=== PATIENT | male | born 1965 | race Caucasian/White ===

== ENCOUNTER 2017-02-24 17:30 | Emergency (ER) | payer BC ==
[2017-02-24] MEDS ORDERED: Ketorolac INJ* 60 MG/2 ML VIAL IM ONE (17:42)
--- NOTE | 2017-02-24 17:42 | UC ---
Back Pain HPI - HPI Summary HPI Summary: was working on his computer this afternoon, and go a spasm in his back - History of Current Complaint Chief Complaint: UCBackPain Stated Complaint: BACK PAIN Time Seen by Provider: 02/24/17 18:30 Hx Obtained From: Patient Onset/Duration: Sudden Onset, Lasting Hours, Still Present Timing: Constant Severity Initially: Moderate Severity Currently: Moderate Pain Intensity: 8 Pain Scale Used: 0-10 Numeric Back Pain: Is Discrete @ - left side of lumbar spine without radiation Character: Aching, Spasmodic, Stiffness Aggravating: Movement, Lifting Alleviating: Nothing Associated Signs And Symptoms: Positive: Negative Related History: Previous Back Injury - Allergies/Home Medications Allergies/Adverse Reactions: Allergies Allergy/AdvReac Type Severity Reaction Status Date / Time Metformin and Related Allergy Intermediate Itching Verified 02/24/17 18:00 PMH/Surg Hx/FS Hx/Imm Hx Previously Healthy: No Endocrine History: Hypothyroidism - Surgical History Surgical History: Yes Surgery Procedure, Year, and Place: JOSE JU[place] 2011 [facility] [place] surgery arthroscopic 19yrs ago [facility] 02/17. lt knee surgery 21 yrs ago [facility] - Family History Known Family History: Positive: Cardiac Disease, Hypertension, Diabetes - Social History Occupation: Employed Full-time Lives: With Family Alcohol Use: None Substance Use Type: None Smoking Status (MU): Never Smoked Tobacco Review of Systems Constitutional: Negative Skin: Negative Eyes: Negative ENT: Negative Respiratory: Negative Cardiovascular: Negative Gastrointestinal: Negative Genitourinary: Negative Motor: Negative Neurovascular: Negative Musculoskeletal: Myalgia - lefy side of lumbar spine Neurological: Negative Psychological: Negative All Other Systems Reviewed And Are Negative: Yes Physical Exam Triage Information Reviewed: Yes Appearance: Well-Appearing, Pain Distress, Obese Vital Signs Reviewed: Yes Eye Exam: Normal Eyes: Positive: Conjunctiva Clear ENT Exam: Normal ENT: Positive: Normal ENT inspection, Hearing grossly normal. Negative: Nasal congestion, Nasal drainage, Trismus, Muffled/hoarse voice Dental Exam: Normal Neck exam: Normal Neck: Positive: Supple, Nontender Respiratory Exam: Normal Respiratory: Positive: Chest non-tender, Lungs clear, Normal breath sounds, No respiratory distress, No accessory muscle use Cardiovascular Exam: Normal Cardiovascular: Positive: RRR, No Murmur, Pulses Normal, Brisk Capillary Refill Abdominal Exam: Normal Abdomen Description: Positive: Nontender, No Organomegaly, Soft. Negative: CVA Tenderness (R), CVA Tenderness (L) Musculoskeletal Exam: Normal Musculoskeletal: Positive: Strength Intact, ROM Intact, No Edema Neurological Exam: Normal Neurological: Positive: Alert, Muscle Tone Normal Psychological Exam: Normal Skin Exam: Normal Back Pain Course/Dx - Course Course Of Treatment: pain med, NSAIDS, Muscle relaxor, back exercise, follow BP with PCP - Differential Dx/Diagnosis Differential Diagnosis/HQI/PQRI: Arthritis, Herniated Disc, Renal Colic, Strain , Sprain Provider Diagnoses: Acute lumbar muscle spasm, hightblood pressure without diagnosis of hypertension Discharge - Discharge Plan Condition: Stable Disposition: HOME Prescriptions: Cyclobenzaprine TAB* [Flexeril 10 MG TAB*] 10 mg PO TID PRN #15 tab PRN Reason: muscle spasm Naproxen [Naproxen 500 mg] 500 mg PO Q12H PRN #20 tab PRN Reason: Pain Patient Education Materials: Low Back Strain (ED), Hypertension (ED), Muscle Spasm (ED), Core Strengthening Exercises (GEN), Lower Back Exercises (ED) Forms: *Work Release Referrals: Palomo De La Vega MD [Primary Care Provider] - 1 Day (if needed)
[2017-02-24] MEDS ORDERED: Cyclobenzaprine TAB* 10 MG PO ONE ×2 (17:43→18:24)
[2017-02-24 18:07] VITALS: BP 144/99
[2017-02-24] MEDS ORDERED: HYDROcodone/ACETAMIN 5-325 MG* 1 TAB PO ONE (18:25)
== END 2017-02-24 19:00 | disposition home or self-care (01) ==
LOC: UCEAST 17:30
DX: M62.830 Muscle spasm of back (principal); R03.0 Elevated blood-pressure reading, without diagnosis of hypertension; E03.9 Hypothyroidism, unspecified
CPT/HCPCS: 96372; 99213; A9270-GY; G0463; J1885

== ENCOUNTER → 2017-03-05 09:27 | Emergency (ER) | payer BC ==
[~2017-03-05 09:27] MED LIST: Adenosine SYRINGE* 6 MG/2 ML IV PUSH ONE; Adenosine* 3 MG/ML VIAL IV PUSH ONE; Adenosine* 3 MG/ML VIAL ONE; NS 0.9% 1000 ML* 2,000 ML IV ONE; NS 0.9% 1000 ML*IV.FLUID BOLUS ONE
--- NOTE | 2017-03-05 10:23 | RAD ---
Indication: Chest pain. Tachycardia. Diaphoresis. Comparison: No relevant prior exams available on the [facility] PACS for comparison. Technique: Upright AP 1000 hours Report: Large body habitus limits image quality. No pulmonary infiltrate, focal pulmonary lesion, pleural effusion, pneumothorax. Top normal heart size accounting for portable AP technique. Unremarkable central pulmonary vasculature and mediastinal contours. IMPRESSION: No evidence for acute intrathoracic disease.
[2017-03-05 11:03] LABS: Potassium 4.4 mmol/L (3.5-5.0)
[2017-03-05 11:04] LABS: Albumin 4.7 g/dL (3.2-5.2); BUN/Creatinine Ratio 16.4 (8-20); Calcium 9.5 mg/dL (8.6-10.3); EGFR African American 72.6 (>60); EGFR Non-African American 56.4 (>60); Globulin 3.2 g/dL (2-4); Total Bilirubin 1.2 mg/dL (0.2-1.0); Total Protein 7.9 g/dL (6.4-8.9)
[2017-03-05 11:24] LABS: Troponin I 0.02 ng/mL (<0.04)
[2017-03-05 12:20] LABS: Hematocrit 44 % (42-52); Hemoglobin 14.5 g/dl (14.0-18.0); Mean Corpuscular HGB Conc 33 g/dl (31-36); Mean Corpuscular Hemoglobin 30 pg (27-31); Mean Corpuscular Volume 90 fL (80-94); Mean Platelet Volume 9 um3 (7.4-10.4); Red Blood Count 4.87 10^6/ul (4.0-5.4); Red Cell Distribution Width 14 % (10.5-15); White Blood Count 8.1 10^3/ul (3.5-10.8)
[2017-03-05 14:30] VITALS: BP 166/122
--- NOTE | 2017-03-05 14:46 | ED ---
Carmen Mcmillan SooYoung, scribed for Pedro Vasquez MD on 03/05/17 at 0939 . Palpitations / Dysrhythmia - HPI Summary HPI Summary: A 51 y/o M presents to ED with racing palpitations onset at approx 0830. Associated sx: diaphoretic. Pt denies pain at bedside. PCP is Dr. De La Vega. - History of Current Complaint Chief Complaint: EDDysrhythmPalp Hx Obtained From: Patient Onset/Duration: Lasting Hours - onset approx 0830, Still Present Timing: Constant Severity Initially: Moderate Severity Currently: Moderate - 4 out of 10 Character: Fast Associated Signs & Symptoms: Diaphoresis - Allergy/Home Medications Allergies/Adverse Reactions: Allergies Allergy/AdvReac Type Severity Reaction Status Date / Time Metformin and Related Allergy Intermediate Itching Verified 03/05/17 09:31 PMH/Surg Hx/FS Hx/Imm Hx Previously Healthy: No Endocrine/Hematology History: Reports: Hx Thyroid Disease Denies: Hx Diabetes Cardiovascular History: Denies: Hx Hypertension, Hx Pacemaker/ICD Respiratory History: Reports: Hx Sleep Apnea - HAS NEVER BEEN FORMALLY DIAGNOSED Denies: Hx Asthma, Hx Chronic Obstructive Pulmonary Disease (COPD) GI History: Reports: Other GI Disorders - VOMITING AFTER COUGH/SNEEZING DUE TO ESOPHAGEAL SPASMS Denies: Hx Ulcer History: Denies: Hx Renal Disease Sensory History: Reports: Hx Contacts or Glasses - GLASSES Denies: Hx Hearing Aid Opthamlomology History: Reports: Hx Contacts or Glasses - GLASSES Psychiatric History: Denies: Hx Panic Disorder - Cancer History Cancer Type, Location and Year: melanoma 9 yrs ago - Surgical History Surgery Procedure, Year, and Place: 2011 [facility] [place]. rt knee surgery arthroscopic 19yrs ago [facility] [place] 02/17. lt knee surgery 21 yrs ago [facility] [place] Hx Anesthesia Reactions: No - CONCERNED HE MAY VOMIT DURING SURGERY Infectious Disease History: No Infectious Disease History: Denies: Hx Hepatitis, Hx Human Immunodeficiency Virus (HIV), Traveled Outside the [place] in Last 30 Days - Family History Known Family History: Positive: Cardiac Disease, Hypertension, Diabetes - Social History Occupation: Unemployed Lives: With Family Alcohol Use: None Hx Substance Use: No Substance Use Type: Reports: None Hx Tobacco Use: No Smoking Status (MU): Never Smoked Tobacco Review of Systems Positive: Skin Diaphoresis Positive: Palpitations All Other Systems Reviewed And Are Negative: Yes Physical Exam Triage Information Reviewed: Yes Vital Signs On Initial Exam: Initial Vitals Temp Pulse Resp BP Pulse Ox 96 F 211 16 146/102 99 03/05/17 09:31 03/05/17 09:31 03/05/17 09:31 03/05/17 09:31 03/05/17 09:31 Vital Signs Reviewed: Yes Appearance: Positive: Well-Appearing, No Pain Distress, Obese - morbidly Skin: Positive: Warm, Skin Color Reflects Adequate Perfusion, Diaphoretic Head/Face: Positive: Normal Head/Face Inspection Eyes: Positive: Normal ENT: Positive: Normal ENT inspection Neck: Positive: Supple, Nontender Respiratory/Lung Sounds: Positive: Clear to Auscultation, Breath Sounds Present Cardiovascular: Positive: Tachycardia Abdomen Description: Positive: Nontender, Soft Bowel Sounds: Positive: Present Musculoskeletal: Positive: Normal Neurological: Positive: Normal Psychiatric: Positive: Normal, Affect/Mood Appropriate Diagnostics - Vital Signs Vital Signs Temp Pulse Resp BP Pulse Ox 03/05/17 09:31 96 F 211 16 146/102 99 - Laboratory Lab Results: Lab Results 03/05/17 03/05/17 03/05/17 Range/Units 09:40 09:40 12:10 WBC 8.1 (3.5-10.8) 10^3/ul RBC 4.87 (4.0-5.4) 10^6/ul Hgb 14.5 (14.0-18.0) g/dl Hct 44 (42-52) % MCV 90 (80-94) fL MCH 30 (27-31) pg MCHC 33 (31-36) g/dl RDW 14 (10.5-15) % Plt Count 186 (150-450) 10^3/ul MPV 9 (7.4-10.4) um3 Neut % (Auto) 65.6 (38-83) % Lymph % (Auto) 21.1 L (25-47) % [place] % (Auto) 11.5 H (1-9) % Eos % (Auto) 1.2 (0-6) % Baso % (Auto) 0.6 (0-2) % Absolute Neuts (auto) 5.3 (1.5-7.7) 10^3/ul Absolute Lymphs (auto) 1.7 (1.0-4.8) 10^3/ul Absolute Monos (auto) 0.9 H (0-0.8) 10^3/ul Absolute Eos (auto) 0.1 (0-0.6) 10^3/ul Absolute Basos (auto) 0 (0-0.2) 10^3/ul Absolute Nucleated RBC 0 10^3/ul Nucleated RBC % 0 Sodium 136 (133-145) mmol/L Potassium 4.4 (3.5-5.0) mmol/L Chloride 101 (101-111) mmol/L Carbon Dioxide 21 L (22-32) mmol/L Anion Gap 14 H (2-11) mmol/L BUN 22 (6-24) mg/dL Creatinine 1.34 H (0.67-1.17) mg/dL Est GFR ( Amer) 72.6 (>60) Est GFR (Non-Af Amer) 56.4 (>60) BUN/Creatinine Ratio 16.4 (8-20) Glucose 147 H (70-100) mg/dL Calcium 9.5 (8.6-10.3) mg/dL Total Bilirubin 1.20 H (0.2-1.0) mg/dL AST 54 H (13-39) U/L ALT 62 H (7-52) U/L Alkaline Phosphatase 67 (34-104) U/L CK-MB (CK-2) 9.5 H (0.6-6.3) ng/mL Troponin I 0.02 (<0.04) ng/mL B-Natriuretic Peptide 29 ( - 100) pg/mL Total Protein 7.9 (6.4-8.9) g/dL Albumin 4.7 (3.2-5.2) g/dL Globulin 3.2 (2-4) g/dL Albumin/Globulin Ratio 1.5 (1-3) Result Diagrams: 03/05/17 12:10 03/05/17 09:40 Lab Statement: Any lab studies that have been ordered have been reviewed, and results considered in the medical decision making process. - Radiology CXR Xray Interpretation: No Acute Changes - IMPRESSION: No evidence for acute intrathoracic dz. ED physician has reviewed this radiology report and agrees. Radiology Interpretation Completed By: Radiologist - EKG 0954 EKG Interpretation: Narrow complex tachycardia 1246 Cardiac Rate: Tachycardia - borderline tachy, 102bpm EKG Interpretation: boderline tachy with increased QTC 0953 Cardiac Rate: Tachycardia - 109 bpm EKG Rhythm: Sinus Tachycardia - with prolonged QTC Re-Evaluation - Re-Evaluation 1 Re-Evaluation Time: 14:09 Change: Improved Comment: Discussing results and consult with pt. Discussed plan to dispo. Pt voiced understanding. Course/Dx - Course Course Of Treatment: Mr. Long presented feeling his heart race, diaphoresis and weakness. He was found to be in SVT and converted with adenocard. His W/U was otherwise negative except for a prolonged QTc on ecg. He will F/U with Dr. Draper. - Diagnoses Provider Diagnoses: SVT (supraventricular tachycardia) - Physician Notifications Discussed Care Of Patient With: Leo Draper - cardiology Time Discussed With Above Provider: 12:32 Instructed by Provider To: Other - Discussed plan to dispo and f/u in office, Dr. Draper agreed. Discharge - Discharge Plan Condition: Stable Disposition: HOME Patient Education Materials: Supraventricular Tachycardia (ED) Referrals: Palomo De La Vega MD [Primary Care Provider] - Leo Draper MD [Medical Doctor] - 1 Week Additional Instructions: Follow up with Dr. Draper, cardiology, this week. Please return to the ED if you experience new or worsening symptoms. Consult Consult: 1332: Consult with Dr. Draper, cardio Discussing 3rd EKG. Agrees that D/C is OK. The documentation as recorded by the Carmen allred SooYoung accurately reflects the service I personally performed and the decisions made by me, Pedro Vasquez MD.
== END | disposition home or self-care (01) ==
LOC: ED 09:27
DX: I47.1 Supraventricular tachycardia (principal); R07.9 Chest pain, unspecified; R00.2 Palpitations; R61 Generalized hyperhidrosis
CPT/HCPCS: 36415; 71010; 80053; 82553; 83880; 84484; 85025; 93005; 99282; J0153

== ENCOUNTER 2018-06-11 12:30 | Emergency (ER) | payer BC, OTHER ==
[2018-06-11 12:45] VITALS: BP 153/99
--- NOTE | 2018-06-11 14:59 | UC ---
Lower Extremity/Ankle HPI - HPI Summary HPI Summary: SLIPPED ON AN ICY CURB GETTING OUT OF THE CAR TO GO IN TO WORK. PULLED LEFT GROIN. HAS PAIN. NO NUMBNESS OR TINGLING. - History of Current Complaint Chief Complaint: UCGeneralIllness Stated Complaint: L GROIN, BACK PAIN Time Seen by Provider: 06/11/18 14:37 Hx Obtained From: Patient Onset/Duration: Sudden Onset, Lasting Hours, Still Present Severity Initially: Moderate Severity Currently: Moderate Pain Intensity: 8 Pain Scale Used: 0-10 Numeric Aggravating Factor(s): Standing, Ambulation Alleviating Factor(s): Rest Able to Bear Weight: Yes - Allergies/Home Medications Allergies/Adverse Reactions: Allergies Allergy/AdvReac Type Severity Reaction Status Date / Time metformin Allergy tongue Verified 06/11/18 12:45 swelling, itching PMH/Surg Hx/FS Hx/Imm Hx Endocrine History: Hypothyroidism Other Cancer History: MELANOMA - Surgical History Surgical History: Yes Surgery Procedure, Year, and Place: [place] [facility] [place] arth[place] 19yrs ago [facility] 02/17. lt knee surgery 21 yrs ago [facility] - Family History Known Family History: Positive: Cardiac Disease, Hypertension, Diabetes - Social History Alcohol Use: None Substance Use Type: None Smoking Status (MU): Never Smoked Tobacco Review of Systems All Other Systems Reviewed And Are Negative: Yes Constitutional: Positive: Negative Skin: Positive: Negative Respiratory: Positive: Negative Cardiovascular: Positive: Negative Gastrointestinal: Positive: Negative Musculoskeletal: Positive: Decreased ROM, Other: - LEFT GROIN PAIN Physical Exam Triage Information Reviewed: Yes Appearance: Well-Appearing, Well-Nourished, Pain Distress - MODERATE Vital Signs: Initial Vital Signs Temp 98 F 06/11/18 12:43 Pulse 100 06/11/18 12:43 Resp 20 06/11/18 12:43 BP 153/99 06/11/18 12:43 Pulse Ox 100 06/11/18 12:43 Vital Signs Reviewed: Yes Eyes: Positive: Conjunctiva Clear ENT: Positive: Hearing grossly normal Neck: Positive: Supple Respiratory: Positive: No respiratory distress, No accessory muscle use Cardiovascular: Positive: Pulses Normal Abdomen Description: Positive: Soft Musculoskeletal: Positive: No Edema, Other: - LEFT GROIN TENDERNESS. DECREASED RANGE OF MOTION LEFT HIP DUE TO GROIN PAIN Neurological: Positive: Alert Psychological: Positive: Age Appropriate Behavior Skin: Negative: Rashes Lower Extremity Course/Dx - Differential Dx/Diagnosis Provider Diagnosis: Strain of left inguinal muscle Discharge - Sign-Out/Discharge Documenting (check all that apply): Patient Departure All imaging exams completed and their final reports reviewed: No Studies - Discharge Plan Condition: Stable Disposition: HOME Prescriptions: Cyclobenzaprine TAB* [Flexeril TAB*] 10 mg PO BID PRN #30 tab PRN Reason: Pain Patient Education Materials: Groin Strain (ED) Forms: *Work Release Referrals: Adolfo Wilde MD [Medical Doctor] - If Needed Palomo De La Vega MD [Primary Care Provider] - If Needed Additional Instructions: YOUR SYMPTOMS SHOULD IMPROVE SIGNIFICANTLY OVER THE NEXT 1-2 WEEKS. IF YOU DO NOT IMPROVE EXPECTED FOLLOW-UP WITH YOUR PCP OR OCCUPATIONAL MEDICINE (DR. WILDE). REST. OTC IBUPROFEN OR ALEVE NEEDED FOR DISCOMFORT. TAKE MUSCLE RELAXER BEFORE BED. BE SURE TO GO THROUGH SLOW RANGE OF MOTION AND STRETCHING EXERCISES DAILY YOU ARE ABLE TO PREVENT STIFFENING UP AND MAKING THE DISCOMFORT WORSE. - Billing Disposition and Condition Condition: STABLE Disposition: Home
== END 2018-06-11 15:00 | disposition home or self-care (01) ==
LOC: UCEAST 12:30
DX: S39.011A Strain of muscle, fascia and tendon of abdomen, initial encounter (principal); W18.49XA Other slipping, tripping and stumbling without falling, initial encounter; Y92.481 Parking lot as the place of occurrence of the external cause; Z88.8 Allergy status to other drugs, medicaments and biological substances
CPT/HCPCS: 99212; G0463